=== PATIENT | female | born 1945 | race African-American/Black ===

== ENCOUNTER 2017-12-22 02:43 | Emergency (ER) | payer MEDICARE ==
[~2017-12-22] VITALS: Ht 162.6 cm; Wt 82.0 kg
[~2017-12-22 02:43] MED LIST: ACET-2178 PO
[2017-12-22] MEDS ORDERED: IBUPROFEN 600MG TABLET PO ONE (06:30)
[2017-12-22 06:44] VITALS: BP 114/62
== END 2017-12-22 06:47 | disposition home or self-care (01) ==
LOC: ER 02:43
DX: M25.522 Pain in left elbow (principal); M54.10 Radiculopathy, site unspecified; Z98.890 Other specified postprocedural states; Z88.0 Allergy status to penicillin
CPT/HCPCS: 99283

== ENCOUNTER 2018-09-13 23:43 | Emergency (ER) | payer MEDICARE ==
[~2018-09-13] VITALS: Ht 162.6 cm; Wt 83.0 kg
[2018-09-14] MEDS ORDERED: IBUPROFEN 600MG TABLET PO ONE (02:00)
[2018-09-14 02:19] VITALS: BP 142/76
== END 2018-09-14 02:20 | disposition home or self-care (01) ==
LOC: ER 23:43
DX: M54.5 Low back pain (principal); Z88.0 Allergy status to penicillin; Z98.890 Other specified postprocedural states; X50.0XXA Overexertion from strenuous movement or load, initial encounter; Y93.89 Activity, other specified; Y92.89 Other specified places as the place of occurrence of the external cause; Y99.8 Other external cause status
CPT/HCPCS: 99282

== ENCOUNTER 2020-07-08 13:41 | Emergency (ER) | payer MEDICARE, OTHER ==
[~2020-07-08] VITALS: Ht 162.6 cm; Wt 90.0 kg
[~2020-07-08 13:41] MED LIST changes: -ACET-2178 PO; +TOPUD PO
[2020-07-08 14:57] VITALS: BP 129/65
[2020-07-08] MEDS ORDERED: ACYCLOVIR 400 MG TABLET PO ONE (15:00)
[2020-07-08] MEDS ORDERED: IBUPROFEN 600MG TABLET PO ONE (15:00)
[2020-07-08] MEDS ORDERED: IBUP-2028 MT (15:44)
[2020-07-08] MEDS ORDERED: ACYC200C MT (15:44)
== END 2020-07-08 16:02 | disposition home or self-care (01) ==
LOC: ER 14:32
DX: B02.9 Zoster without complications (principal); Z88.0 Allergy status to penicillin
CPT/HCPCS: 71045; 99283